=== PATIENT | female | born 1965 | race Caucasian/White ===

== ENCOUNTER 2017-05-08 12:11 | Emergency (ER) | payer MEDICAID | END 2017-05-08 12:41 | disposition home or self-care (01) | LOC: FTE 12:11 → E/R 12:41 | DX: J20.9 Acute bronchitis, unspecified (principal) | CPT/HCPCS: 99284; Z7502 ==

== ENCOUNTER 2018-06-22 10:20 | Emergency (ER) | payer MEDICAID | END 2018-06-22 11:58 | disposition home or self-care (01) | LOC: FTE 10:20 | DX: J20.9 Acute bronchitis, unspecified (principal); E11.9 Type 2 diabetes mellitus without complications | CPT/HCPCS: 99283; Z7502 ==

== ENCOUNTER 2019-01-06 10:58 | Emergency (ER) | payer MEDICAID | END 2019-01-06 13:28 | disposition home or self-care (01) | LOC: FTE 10:58 | DX: H00.014 Hordeolum externum left upper eyelid (principal) | CPT/HCPCS: 99283; Z7502 ==